=== PATIENT | female | born 1935 | race Caucasian/White ===

== ENCOUNTER 2018-05-08 12:05 | Inpatient (IN) ==
[2018-05-08] MEDS: BUDESONIDE NS SCH (21:16)
[2018-05-08] MEDS: Ammonium Lactate 30 APPL/225 GM BOTTLE TP SCH (21:16)
[2018-05-09] MEDS: MOM Conc 10 ML UD.LIQ PO SCH (08:02)
[2018-05-09] MEDS: Aspirin Enteric Coated 81 MG Tablet PO SCH (08:05)
[2018-05-09] MEDS: Loratadine 10 MG TABLET PO SCH (08:05)
[2018-05-09] MEDS: Cholecalciferol (D-3) 1,000 UNIT TABLET PO SCH (08:05)
[2018-05-09] MEDS: Ascorbic Acid 500 MG TABLET PO SCH (08:05)
[2018-05-09] MEDS: Lactobacillus 1 EACH CAP.SPRINK PO SCH (08:05)
[2018-05-09] MEDS: Ammonium Lactate 30 APPL/225 GM BOTTLE TP SCH ×2 (08:06→21:21)
[2018-05-09] MEDS: BUDESONIDE NS SCH ×2 (08:07→21:21)
[2018-05-09] MEDS ORDERED: (Potassium [Potassium] 99 MG) PO SCH (09:00)
[2018-05-09] MEDS ORDERED: FEXOFENADINE HCL 60 MG PO SCH (09:00)
[2018-05-09] MEDS ORDERED: PSYLLIUM HUSK PO SCH (09:00)
[2018-05-09] MEDS ORDERED: CALCIUM CARB PO SCH (09:00)
[2018-05-09] MEDS ORDERED: GLUCOSAMINE HCL 1000 MG PO SCH (09:00)
[2018-05-09] MEDS ORDERED: CRANBERRY PO SCH (09:00)
[2018-05-09] MEDS ORDERED: ASCORBIC ACID PO SCH (09:00)
--- NOTE | 2018-05-09 11:32 | Internal Med History&Physical ---
Date of Encounter: 05/09/18 Time of Encounter: 11:00 Assessment and Plan (1) Small bowel fistula Current visit: No Status: Acute Continue present management. Recheck labs in a.m. (2) Anemia Current visit: Yes Status: Acute Recheck labs in a.m. Qualifiers: Anemia type: unspecified type Qualified Code(s): D64.9 - Anemia, unspec ified (3) Constipation Current visit: Yes Status: Acute Continue scheduled MiraLAX and MOM. Add Dulcolax suppository as needed. Qualifiers: Constipation type: unspecified constipation type Qualified Code(s): K59.00 - Constipation, unspecified (4) Weakness Current visit: Yes Status: Acute PT and OT evaluations have been ordered Internal Medicine - H&P: HPI Chief complaint: Small bowel fistula Admitted From: Hospital to Hospital Transfer Plans for Post Hospital Care: Home History of present illness: Ms. Casas is a 82 year old female who was transferred to [facility] swing bed May 08 after [facility] admission May 02 for elective abdominal exploratory laparoscopy. The procedure was converted to laparotomy with lysis of adhesions and 16 inches of small bowel resection for fistula involving a mesh placed 2004 for ventral hernia repair. Her postop course was unremarkable and she was discharged to [facility] swing bed for rehabilitation therapy. Her GI history is pertinent for previous pancreatic cyst and occasional GERD symptoms. She denies disorders of her liver or gallbladder otherwise. Past Med Surg Social Fam HX - Past Medical History Medical history: arthritis, cancer, COPD, GERD, osteoporosis Additional medical history: DDD Psychiatric history: no psych history - Past Surgical History Surgical History: herniorrhaphy Additional surgical history: cyst removed from pancreas, shoulder repair,. PE tube in right ear. skin CA removed. tonsillectomy - Social History Smoking Status: Never smoker Smokeless Tobacco Status: No Alcohol use: rarely Drug use: none Internal Medicine - H&P: Meds Ammonium Lactate [Lac-Hydrin Five] 1 applic TP BID 05/02/18 [History] Ascorbic Acid [Vitamin C] 200 mg PO DAILY 05/02/18 [History] Aspirin [Lo-Dose Aspirin EC] 81 mg PO DAILY 05/02/18 [History] Cholecalciferol (D-3) [Vitamin D] 3,000 unit PO DAILY 05/02/18 [History] Cranberry Conc/Ascorbic Acid [Cranberry Plus Vitamin C Sftgl] 2 tab PO DAILY 05/02/18 [History] Fexofenadine HCl 60 mg PO DAILY 05/02/18 [History] Glucosamine HCl 1,000 mg PO DAILY 05/02/18 [History] Lactobacillus Combination No.8 [Adult Probiotic] 1 cap PO DAILY 05/02/18 [History] Montelukast [Singulair] 10 mg PO DAILY 05/02/18 [History] [place]-3/Dha/Epa/Fish Oil [Fish Oil 1,000 mg Softgel] 2 tab PO DAILY 05/02/18 [History] Polyethylene Glycol 3350 [MiraLAX] 17 gm PO HS 05/02/18 [History] Potassium 99 mg PO DAILY 05/02/18 [History] Psyllium Husk/Calcium Carb [Metamucil Plus Calcium Capsule] 6 tab PO DAILY 05/02/18 [History] Budesonide 1 spray NS BID 05/05/18 [History] Cetirizine HCl [Zyrtec] 10 mg PO DAILY 05/05/18 [History] Ibuprofen [Motrin] 800 mg PO Q8HR PRN tablet 05/08/18 [Rx] OxyCODONE/APAP 5/325 [Percocet 5/325 MG] 1 each PO Q6HR PRN 7 Days #28 tablet 05/08/18 [Rx] Allergy/AdvReac Type Severity Reaction Status Date / Time Amoxicillin [From Augmentin] Allergy See Verified 04/25/18 11:46 Comments clavulanic acid Allergy See Verified 04/25/18 11:46 [From Augmentin] Comments codeine Allergy Nausea Verified 04/25/18 11:46 gabapentin Allergy See Verified 04/25/18 11:46 Comments meloxicam Allergy See Verified 04/25/18 11:46 Comments meperidine Allergy See Verified 04/25/18 11:46 Comments naproxen Allergy See Verified 04/25/18 11:46 Comments pregabalin [From Lyrica] Allergy See Verified 04/25/18 11:46 Comments trazodone Allergy See Verified 04/25/18 11:46 Comments grass pollen AdvReac Watery Eye Verified 04/25/18 11:30 mupirocin AdvReac Diarrhea Verified 04/25/18 11:30 ragweed pollen AdvReac [place]y Eye Verified 04/25/18 11:30 tree and shrub pollen AdvReac Watery Eye Verified 04/25/18 11:30 weed pollen AdvReac Watery Eye Verified 04/25/18 11:30 All Systems PM: A 10-system review of systems was performed and is negative for pertinent findings except as documented above in the HPI. Review of systems: Gen.: She states her weight has been stable the past few months Cardiovascular: She denies hypertension [place] heart failure angina DVT or pulmonary embolus Respiratory: She is a lifelong nonsmoker. She reports she has been diagnosed with COPD. She does not use home oxygen. GI: As per history of present illness : She denies hematuria dysuria or kidney stones Neurologic: She denies large distribution strokes or seizures. Endocrine: She denies diabetes thyroid disease or hyperlipidemia Hematology/oncology: She has had skin cancer in the past but denies internal malignancies. She developed postop anemia following her recent abdominal surgery. Psychiatric: She denies anxiety depression or other mental health issues. [place] skeletal: She has DJD and osteoporosis. She had remote right shoulder injury and right forearm fracture. - Constitutional Vitals: Temp Pulse Resp BP Pulse Ox 98.0 F 78 18 118/68 97 05/09/18 07:28 05/09/18 07:28 05/09/18 07:28 05/09/18 07:28 05/09/18 08:32 Exam: Gen.: She is a well-developed well-nourished female resting comfortably in bed who appears in no acute distress HEENT: Head is atraumatic and normocephalic. Eyes: EOMI. There is no scleral icterus. Mouth: Mucosa is moist. Neck: Supple and nontender. There is no thyromegaly or adenopathy noted. Heart: Regular without murmurs gallops or ectopics Lungs: No wheezes or crackles are heard. Abdomen: She is wearing an abdominal binder. She has a surgical dressing in the lower midline abdominal wall which I did not remove. There is some serous drainage on the dressing and overlying clothing/bedding Extremities: There is no cyanosis edema or clubbing noted. Dorsalis pedis and posttibial pulses are trace palpable bilaterally. Her feet are warm to touch. Neurologic: Mental status: She is talkative and a good historian. Cranial nerves: Smile is symmetric. Forehead reveals bilaterally. Tongue protrudes midline. EOMI. Motor: There is no pronator drift. Cerebellar: Finger to nose is intact bilaterally. Skin: Warm and dry
[2018-05-09] MEDS: Bisacodyl 10 MG RECTAL SUPPOSITORY RC PRN (17:06)
[2018-05-09] MEDS: Ibuprofen 800 MG TABLET PO PRN (18:54)
[2018-05-10 05:10] LABS: Basophils % 0.6 %; Hematocrit 34.1 % (35.3-44.9); Hemoglobin 11.1 g/dL (11.5-15.4); Immature Granulocytes % 3.1 % (0-4); Lymphocytes # 0.8 K/mcL (0.6-4.6); Lymphocytes % 11.8 %; Mean Corpuscular HGB Conc 32.6 g/dL (31.6-35.5); Mean Corpuscular Hemoglobin 31.1 pg (28.0-33.3); Mean Corpuscular Volume 95.5 fL (83.0-100.0); Mean Platelet Volume 9.3 fL (9.4-12.4); Monocytes # 0.6 K/mcL (0.0-1.3); Monocytes % 8.8 %; Neutrophils # 5.1 K/mcL (1.6-8.9); Platelet Count 335 K/mcL (140-400); Red Blood Count 3.57 M/mcL (3.82-4.97); Red Cell Distribution Width 12.9 % (11.5-14.5); Segmented Neutrophils % 75.7 %
[2018-05-10] MEDS: Psyllium 1 PACKET POWD.PACK PO SCH (08:27)
[2018-05-10] MEDS: Cholecalciferol (D-3) 1,000 UNIT TABLET PO SCH (08:27)
[2018-05-10] MEDS: Aspirin Enteric Coated 81 MG Tablet PO SCH (08:28)
[2018-05-10] MEDS: Ascorbic Acid 500 MG TABLET PO SCH (08:28)
[2018-05-10] MEDS: Ibuprofen 800 MG TABLET PO PRN ×2 (08:28→22:29)
[2018-05-10] MEDS: Lactobacillus 1 EACH CAP.SPRINK PO SCH (08:29)
[2018-05-10] MEDS: Fluticasone Propionate Nasal 50 MCG/SPRAY BOTTLE NS SCH (08:29)
[2018-05-10] MEDS: Ammonium Lactate 30 APPL/225 GM BOTTLE TP SCH ×2 (08:30→22:24)
[2018-05-10] MEDS: Loratadine 10 MG TABLET PO SCH (08:35)
[2018-05-10 09:22] LABS: % Iron Saturation 13 % (15-50); Iron 25 mcg/dL (50-170); Transferrin 135 mg/dL (203-362)
[2018-05-10 09:40] LABS: Ferritin 133 ng/mL (10-120)
[2018-05-10 09:45] LABS: Folate 11.4 ng/mL (3.0-16.0)
[2018-05-10 09:53] LABS: Vitamin B12 > 1500 pg/mL (250-1100)
--- NOTE | 2018-05-10 18:11 | Internal Med Progress Note ---
Date of Encounter: 05/10/18 Time of Encounter: 18:00 - Assessment and plan (1) Small bowel fistula Current Visit: No Status: Acute Assessment and plan: May 10. Hemoglobin slightly improved at 11.1. Continue present managem ent. (2) Anemia Current Visit: Yes Status: Acute Assessment and plan: May 10. Anemia testing showed iron 25, transferrin saturation 13%, transferrin 135, ferritin 133, B12 > 1500, and folate 11.4. I told her I felt she might benefit from oral ferrous sulfate but she did not want to take this for fear of developing constipation. Qualifiers: Anemia type: unspecified type Qualified Code(s): D64.9 - Anemia, unspecified (3) Constipation Current Visit: Yes Status: Acute Assessment and plan: May 10. Continue scheduled MiraLAX with MOM and use Dulcolax as needed. Qualifiers: Constipation type: unspecified constipation type Qualified Code(s): K59.00 - Constipation, unspecified (4) Weakness Current Visit: Yes Status: Acute Assessment and plan: May 10. PT and OT evaluations have been ordered. - Subjective Interval history: May 10. She has no new complaints. - Constitutional Vitals: Temp Pulse Resp BP Pulse Ox 98.7 F 67 18 113/69 98 05/10/18 06:08 05/10/18 06:08 05/10/18 06:08 05/10/18 06:08 05/10/18 06:08 Exam: She has ambulated from the sink to her bed. Her affect is cheerful. I reviewed her medications and lab results. Internal Medicine: Result - Labs CBC & Chem 7: 05/10/18 04:51 Labs: Short CBC 05/10/18 Range/Units 04:51 WBC 6.8 (4.3-11.1) K/mcL Hgb 11.1 L (11.5-15.4) g/dL Hct 34.1 L (35.3-44.9) % Plt Count 335 (140-400) K/mcL Neutrophils # 5.1 (1.6-8.9) K/mcL Consult Discharge Plan - Plan Referrals: NONE,PCP [Primary Care Provider] - 1 week
[2018-05-10] MEDS: Bisacodyl 10 MG RECTAL SUPPOSITORY RC PRN (22:41)
[2018-05-11] MEDS: MOM Conc 10 ML UD.LIQ PO SCH (08:46)
[2018-05-11] MEDS: Aspirin Enteric Coated 81 MG Tablet PO SCH (08:47)
[2018-05-11] MEDS: Loratadine 10 MG TABLET PO SCH (08:47)
[2018-05-11] MEDS: Cholecalciferol (D-3) 1,000 UNIT TABLET PO SCH (08:47)
[2018-05-11] MEDS: Ascorbic Acid 500 MG TABLET PO SCH (08:48)
[2018-05-11] MEDS: Psyllium 1 PACKET POWD.PACK PO SCH (08:48)
[2018-05-11] MEDS: Lactobacillus 1 EACH CAP.SPRINK PO SCH (08:48)
[2018-05-11] MEDS: Ibuprofen 800 MG TABLET PO PRN (08:48)
[2018-05-11] MEDS: Fluticasone Propionate Nasal 50 MCG/SPRAY BOTTLE NS SCH (08:48)
[2018-05-11] MEDS: Ammonium Lactate 30 APPL/225 GM BOTTLE TP SCH ×2 (08:50→22:37)
[2018-05-12 04:45] LABS: Basophils % 0.4 %; Hematocrit 31.9 % (35.3-44.9); Hemoglobin 10.4 g/dL (11.5-15.4); Immature Granulocytes % 0.7 % (0-4); Lymphocytes # 1.1 K/mcL (0.6-4.6); Lymphocytes % 13.4 %; Mean Corpuscular HGB Conc 32.6 g/dL (31.6-35.5); Mean Corpuscular Hemoglobin 31.1 pg (28.0-33.3); Mean Corpuscular Volume 95.5 fL (83.0-100.0); Mean Platelet Volume 9.1 fL (9.4-12.4); Monocytes # 0.8 K/mcL (0.0-1.3); Monocytes % 8.9 %; Neutrophils # 6.4 K/mcL (1.6-8.9); Platelet Count 393 K/mcL (140-400); Red Blood Count 3.34 M/mcL (3.82-4.97); Red Cell Distribution Width 13.2 % (11.5-14.5); Segmented Neutrophils % 76.6 %
[2018-05-12 05:05] LABS: BUN/Creatinine Ratio 24 (6-26); Blood Urea Nitrogen 9 mg/dL (8-23); Calcium 8.8 mg/dL (8.6-10.3); Carbon Dioxide 25 mEq/L (23-29); Chloride 104 mEq/L (98-107); Glucose 118 mg/dL (70-105); Osmolality,Calculated 278 (280-300); Sodium 134 mEq/L (136-145); eGFR For Non-African Americans > 60 (> 60)
[2018-05-12] MEDS: Ascorbic Acid 500 MG TABLET PO SCH (09:25)
[2018-05-12] MEDS: *HR* OxyCODONE/APAP 5/325 TABLET PO PRN (09:25)
[2018-05-12] MEDS: Loratadine 10 MG TABLET PO SCH (09:25)
[2018-05-12] MEDS: Aspirin Enteric Coated 81 MG Tablet PO SCH (09:25)
[2018-05-12] MEDS: Lactobacillus 1 EACH CAP.SPRINK PO SCH (09:25)
[2018-05-12] MEDS: Cholecalciferol (D-3) 1,000 UNIT TABLET PO SCH (09:26)
[2018-05-12] MEDS: Fluticasone Propionate Nasal 50 MCG/SPRAY BOTTLE NS SCH (09:26)
[2018-05-12] MEDS: Psyllium 1 PACKET POWD.PACK PO SCH (09:26)
[2018-05-12] MEDS: Ammonium Lactate 30 APPL/225 GM BOTTLE TP SCH ×2 (09:27→20:48)
[2018-05-12] MEDS ORDERED: Isovue-370 500 ML INFUS..BTL IV ONE (15:32)
--- NOTE | 2018-05-12 15:38 | Internal Med Progress Note ---
Date of Encounter: 05/12/18 Time of Encounter: 15:25 - Assessment and plan (1) Small bowel fistula Current Visit: No Status: Acute Assessment and plan: May 10. Hemoglobin slightly improved at 11.1. Continue present managem ent. May 12. Will order abdominal/pelvic CT scan with contrast to further evaluate (2) Anemia Current Visit: Yes Status: Acute Assessment and plan: May 10. Anemia testing showed iron 25, transferrin saturation 13%, transferrin 135, ferritin 133, B12 > 1500, and folate 11.4. I told her I felt she might benefit from oral ferrous sulfate but she did not want to take this for fear of developing constipation. Qualifiers: Anemia type: unspecified type Qualified Code(s): D64.9 - Anemia, unspecified (3) Constipation Current Visit: Yes Status: Acute Assessment and plan: May 10. Continue scheduled MiraLAX with MOM and use Dulcolax as needed. Qualifiers: Constipation type: unspecified constipation type Qualified Code(s): K59.00 - Constipation, unspecified (4) Weakness Current Visit: Yes Status: Acute Assessment and plan: May 10. PT and OT evaluations have been ordered. - Subjective Interval history: May 10. She has no new complaints. May 12. She states she does not feel well. She denies significant abdomin al pain but states there has been no lessening of abdominal wound drainage. - Constitutional Vitals: Temp Pulse Resp BP Pulse Ox 97.9 F 69 19 108/61 97 05/12/18 07:11 05/12/18 07:11 05/12/18 07:11 05/12/18 07:11 05/12/18 07:11 Exam: She is sitting in a recliner chair at bedside. Packing was removed from the abdominal wound at both the proximal and distal end. There was significant amount of foul-smelling slightly purulent liquid expressed primarily from the distal site. No visible blood was seen. Extremities show trace to 1+ edema through WILLI hose. I reviewed her medications and lab results. Internal Medicine: Result - Labs CBC & Chem 7: 05/12/18 04:20 05/12/18 04:20 Labs: Short CBC 05/12/18 Range/Units 04:20 WBC 8.4 (4.3-11.1) K/mcL Hgb 10.4 L (11.5-15.4) g/dL Hct 31.9 L (35.3-44.9) % Plt Count 393 (140-400) K/mcL Neutrophils # 6.4 (1.6-8.9) K/mcL BMP 05/12/18 04:20 Sodium 134 L Potassium 4.0 Chloride 104 Carbon Dioxide 25 BUN 9 Creatinine 0.38 L Glucose 118 H Calcium 8.8 Consult Discharge Plan - Plan Referrals: NONE,PCP [Primary Care Provider] - 1 week
[2018-05-12] MEDS ORDERED: Ondansetron ODT 4 MG TAB.RAPDIS SL PRN (16:34)
[2018-05-12] MEDS ORDERED: ISOVUE-370 100 ML INFUS..BTL IVP ONE (17:46)
[2018-05-13 06:09] LABS: Basophils % 0.4 %; Hematocrit 31.5 % (35.3-44.9); Hemoglobin 10.3 g/dL (11.5-15.4); Immature Granulocytes % 1.3 % (0-4); Mean Corpuscular HGB Conc 32.7 g/dL (31.6-35.5); Mean Corpuscular Volume 94.9 fL (83.0-100.0); Mean Platelet Volume 9.2 fL (9.4-12.4); Monocytes % 13.4 %; Neutrophils # 5.3 K/mcL (1.6-8.9); Platelet Count 387 K/mcL (140-400); Red Blood Count 3.32 M/mcL (3.82-4.97); Segmented Neutrophils % 71.9 %
--- NOTE | 2018-05-13 09:29 | Internal Med Progress Note ---
Date of Encounter: 05/13/18 Time of Encounter: 09:10 - Assessment and plan (1) Small bowel fistula Current Visit: No Status: Acute Assessment and plan: May 10. Hemoglobin slightly improved at 11.1. Continue present managem ent. May 12. Will order abdominal/pelvic CT scan with contrast to further evaluate May 13. Will do C&S of abdominal drainage and start empiric antibiotics. Contact will be made with surgeon's office tomorrow for possible follow-up visit earlier than presently scheduled for 05/20/2018. (2) Anemia Current Visit: Yes Status: Acute Assessment and plan: May 10. Anemia testing showed iron 25, transferrin saturation 13%, transferrin 135, ferritin 133, B12 > 1500, and folate 11.4. I told her I felt she might benefit from oral ferrous sulfate but she did not want to take this for fear of developing constipation. Qualifiers: Anemia type: unspecified type Qualified Code(s): D64.9 - Anemia, unspecified (3) Constipation Current Visit: Yes Status: Acute Assessment and plan: May 10. Continue scheduled MiraLAX with MOM and use Dulcolax as needed. Qualifiers: Constipation type: unspecified constipation type Qualified Code(s): K59.00 - Constipation, unspecified (4) Weakness Current Visit: Yes Status: Acute Assessment and plan: May 10. PT and OT evaluations have been ordered. - Subjective Interval history: May 10. She has no new complaints. May 12. She states she does not feel well. She denies significant abdominal pain but states there has been no lessening of abdominal wound drainage. May 13. She states she does not feel improved. She is certain she has an infection in her abdomen. - Constitutional Vitals: Temp Pulse Resp BP Pulse Ox 98.8 F 93 18 103/57 98 05/12/18 18:37 05/12/18 18:37 05/12/18 18:37 05/12/18 18:37 05/12/18 18:37 Exam: She has lying in bed and appears in mild discomfort at rest. I reviewed her medications and lab results. I reviewed her abdominal CT report showing extraperitoneal fluid collection in the anterior pelvis with multifocal subcutaneous areas of gas and fluid. Internal Medicine: Result - Labs CBC & Chem 7: 05/13/18 05:25 05/12/18 04:20 Labs: Short CBC 05/13/18 Range/Units 05:25 WBC 7.4 (4.3-11.1) K/mcL Hgb 10.3 L (11.5-15.4) g/dL Hct 31.5 L (35.3-44.9) % Plt Count 387 (140-400) K/mcL Neutrophils # 5.3 (1.6-8.9) K/mcL - Impressions Impressions Abdomen/Pelvis CT 05/12/18 15:32 IMPRESSION: 1. The bowel gas pattern is most in keeping with mild adynamic ileus 2. Trace pneumoperitoneum is presumably related to recent surgical intervention but is nonspecific. 3. No contrast extravasation or intraperitoneal free fluid collection is evident within the abdomen or pelvis. 4. Extraperitoneal fluid collection is noted anterior in the pelvis and are multifocal subcutaneous areas of gas and fluid which are presumably postsurgical. Any of these areas could have involvement with infection. 5. Nonspecific right renal lesion probably reflects a cyst and should be followed with CT in 12 months. 6. Calcific atherosclerotic disease aorta. 7. Small volume bilateral pleural effusion with bibasilar relaxation atelectasis. D/ / Sanjeev Schmid / Sanjeev Schmid Interpreting Provider: Sanjeev Schmid Consult Discharge Plan - Plan Referrals: NONE,PCP [Primary Care Provider] - 1 week
[2018-05-13] MEDS: Loratadine 10 MG TABLET PO SCH (10:09)
[2018-05-13] MEDS: Aspirin Enteric Coated 81 MG Tablet PO SCH (10:09)
[2018-05-13] MEDS: Ascorbic Acid 500 MG TABLET PO SCH (10:09)
[2018-05-13] MEDS: Cholecalciferol (D-3) 1,000 UNIT TABLET PO SCH (10:09)
[2018-05-13] MEDS: Lactobacillus 1 EACH CAP.SPRINK PO SCH (10:09)
[2018-05-13] MEDS: Psyllium 1 PACKET POWD.PACK PO SCH (10:10)
[2018-05-13] MEDS: MOM Conc 10 ML UD.LIQ PO SCH (10:10)
[2018-05-13] MEDS: Fluticasone Propionate Nasal 50 MCG/SPRAY BOTTLE NS SCH (10:11)
[2018-05-13] MEDS: Ammonium Lactate 30 APPL/225 GM BOTTLE TP SCH ×2 (10:11→21:14)
[2018-05-13] MEDS: MetroNIDAZOLE 500 MG/100 ML 500 MG/100 ML BAG IVPB SCH ×2 (14:44→16:22)
[2018-05-14] MEDS: MetroNIDAZOLE 500 MG/100 ML 500 MG/100 ML BAG IVPB SCH ×4 (01:16→23:03)
[2018-05-14] MEDS: Lactobacillus 1 EACH CAP.SPRINK PO SCH (09:40)
[2018-05-14] MEDS: Ammonium Lactate 30 APPL/225 GM BOTTLE TP SCH ×2 (09:40→21:17)
[2018-05-14] MEDS: Ascorbic Acid 500 MG TABLET PO SCH (09:41)
[2018-05-14] MEDS: Cholecalciferol (D-3) 1,000 UNIT TABLET PO SCH (09:41)
[2018-05-14] MEDS: Psyllium 1 PACKET POWD.PACK PO SCH (09:41)
[2018-05-14] MEDS: Loratadine 10 MG TABLET PO SCH (09:43)
[2018-05-14] MEDS: Aspirin Enteric Coated 81 MG Tablet PO SCH (09:43)
--- NOTE | 2018-05-14 12:38 | Internal Med Progress Note ---
Date of Encounter: 05/14/18 Time of Encounter: : - Assessment and plan (1) Small bowel fistula Current Visit: No Status: Acute Assessment and plan: May 10. Hemoglobin slightly improved at 11.1. Continue present managem ent. May 12. Will order abdominal/pelvic CT scan with contrast to further evaluate May 13. Will do C&S of abdominal drainage and start empiric antibiotics. Contact will be made with surgeon's office tomorrow for possible follow-up visit earlier than presently scheduled for 05/20/2018. May 14. Awaiting appointment with surgery to evaluate abdominal wound. Continue IV antibiotics. Culture report pending. (2) Anemia Current Visit: Yes Status: Acute Assessment and plan: May 10. Anemia testing showed iron 25, transferrin saturation 13%, transferrin 135, ferritin 133, B12 > 1500, and folate 11.4. I told her I felt she might benefit from oral ferrous sulfate but she did not want to take this for fear of developing constipation. May 14. Recheck labs in a.m. Qualifiers: Anemia type: unspecified type Qualified Code(s): D64.9 - Anemia, unspecified (3) Constipation Current Visit: Yes Status: Acute Assessment and plan: May 10. Continue scheduled MiraLAX with MOM and use Dulcolax as needed. Qualifiers: Constipation type: unspecified constipation type Qualified Code(s): K59.00 - Constipation, unspecified (4) Weakness Current Visit: Yes Status: Acute Assessment and plan: May 10. PT and OT evaluations have been ordered. - Subjective Interval history: May 10. She has no new complaints. May 12. She states she does not feel well. She denies significant abdominal pain but states there has been no lessening of abdominal wound drainage. May 13. She states she does not feel improved. She is certain she has an infection in her abdomen. May 14. She states she does not feel improved. She thinks the quantity of drainage may be lessening from her abdominal incision. - Constitutional Vitals: Temp Pulse Resp BP Pulse Ox 98.5 F 78 16 115/64 96 05/14/18 06:31 05/14/18 06:31 05/14/18 06:31 05/14/18 06:31 05/14/18 06:31 Exam: She is sitting in a chair at bedside and appears in minimal physical distress. Her affect is sad and she appears emotionally distressed. I reviewed her medications and lab results. I note a low-grade fever of 99.3 last evening. Internal Medicine: Result - Labs CBC & Chem 7: 05/13/18 05:25 05/12/18 04:20 - Impressions Impressions Abdomen/Pelvis CT 05/12/18 15:32 IMPRESSION: 1. The bowel gas pattern is most in keeping with mild adynamic ileus 2. Trace pneumoperitoneum is presumably related to recent surgical intervention but is nonspecific. 3. No contrast extravasation or intraperitoneal free fluid collection is evident within the abdomen or pelvis. 4. Extraperitoneal fluid collection is noted anterior in the pelvis and are multifocal subcutaneous areas of gas and fluid which are presumably postsurgical. Any of these areas could have involvement with infection. 5. Nonspecific right renal lesion probably reflects a cyst and should be followed with CT in 12 months. 6. Calcific atherosclerotic disease aorta. 7. Small volume bilateral pleural effusion with bibasilar relaxation atelectasis. D/ / Sanjeev Schmid / Sanjeev Schmid Interpreting Provider: Sanjeev Schmid Consult Discharge Plan - Plan Referrals: NONE,PCP [Primary Care Provider] - 1 week
[2018-05-14] MEDS: Fluticasone Propionate Nasal 50 MCG/SPRAY BOTTLE NS SCH (14:10)
[2018-05-14] MEDS: Acetaminophen 325 MG TABLET PO PRN (18:11)
[2018-05-14] MEDS: *HR* OxyCODONE/APAP 5/325 TABLET PO PRN (23:03)
[2018-05-14] MEDS: Ondansetron 4 MG/2 ML VIAL IVP PRN (23:03)
[2018-05-15] MEDS: Cholecalciferol (D-3) 1,000 UNIT TABLET PO SCH (07:32)
[2018-05-15] MEDS: Aspirin Enteric Coated 81 MG Tablet PO SCH (07:33)
[2018-05-15] MEDS: Ascorbic Acid 500 MG TABLET PO SCH (07:33)
[2018-05-15] MEDS: Lactobacillus 1 EACH CAP.SPRINK PO SCH (07:33)
[2018-05-15] MEDS: Psyllium 1 PACKET POWD.PACK PO SCH (07:33)
[2018-05-15] MEDS: Loratadine 10 MG TABLET PO SCH (07:33)
[2018-05-15] MEDS: Ammonium Lactate 30 APPL/225 GM BOTTLE TP SCH ×2 (07:38→21:11)
[2018-05-15] MEDS: Fluticasone Propionate Nasal 50 MCG/SPRAY BOTTLE NS SCH (07:38)
[2018-05-15] MEDS: MOM Conc 10 ML UD.LIQ PO SCH (07:40)
[2018-05-15] MEDS: MetroNIDAZOLE 500 MG/100 ML 500 MG/100 ML BAG IVPB SCH (11:10)
--- NOTE | 2018-05-15 11:12 | Internal Med Progress Note ---
Date of Encounter: 05/15/18 Time of Encounter: 11:00 - Assessment and plan (1) Small bowel fistula Current Visit: No Status: Acute Assessment and plan: May 10. Hemoglobin slightly improved at 11.1. Continue present managem ent. May 12. Will order abdominal/pelvic CT scan with contrast to further evaluate May 13. Will do C&S of abdominal drainage and start empiric antibiotics. Contact will be made with surgeon's office tomorrow for possible follow-up visit earlier than presently scheduled for 05/20/2018. May 14. Awaiting appointment with surgery to evaluate abdominal wound. Continue IV antibiotics. Culture report pending. May 15. Preliminary wound culture shows 2 gram-negative rods. Review of 05/02/2018 wound culture was reviewed. Will change antibiotics to IV Levaquin and Rocephin and continue lactobacillus. The surgery SENIOR PRINCIPAL SOFTWARE ENGINEER change the packing orders and recommended oral Diflucan. (2) Anemia Current Visit: Yes Status: Acute Assessment and plan: May 10. Anemia testing showed iron 25, transferrin saturation 13%, transferrin 135, ferritin 133, B12 > 1500, and folate 11.4. I told her I felt she might benefit from oral ferrous sulfate but she did not want to take this for fear of developing constipation. May 14. Recheck labs in a.m. Qualifiers: Anemia type: unspecified type Qualified Code(s): D64.9 - Anemia, unspe cified (3) Constipation Current Visit: Yes Status: Acute Assessment and plan: May 10. Continue scheduled MiraLAX with MOM and use Dulcolax as needed. Qualifiers: Constipation type: unspecified constipation type Qualified Code(s): K59.00 - Constipation, unspecified (4) Weakness Current Visit: Yes Status: Acute Assessment and plan: May 10. PT and OT evaluations have been ordered. - Subjective Interval history: May 10. She has no new complaints. May 12. She states she does not feel well. She denies significant abdominal pain but states there has been no lessening of abdominal wound drainage. May 13. She states she does not feel improved. She is certain she has an infection in her abdomen. May 14. She states she does not feel improved. She thinks the quantity of drainage may be lessening from her abdominal incision. May 15. She feels better. She saw surgery staff this morning to evaluate abdominal wound. I spoke with the evaluating SENIOR PRINCIPAL SOFTWARE ENGINEER at the surgeon's office following the visit. - Constitutional Vitals: Temp Pulse Resp BP Pulse Ox 97.6 F 82 16 124/63 98 05/15/18 07:07 05/15/18 07:07 05/15/18 07:07 05/15/18 07:07 05/15/18 07:07 Exam: She is sitting on the side of bed and appears in no acute distress. Her affect is much more bright and cheerful today. I reviewed her medications and lab results. I reviewed her preliminary culture report from wound culture 05/13/2018. Internal Medicine: Result - Labs CBC & Chem 7: 05/13/18 05:25 05/12/18 04:20 Consult Discharge Plan - Plan Referrals: NONE,PCP [Primary Care Provider] - 1 week
[2018-05-15] MEDS: Acetaminophen 325 MG TABLET PO PRN (17:23)
[2018-05-15] MEDS: Fluconazole 100 MG TABLET PO SCH (18:28)
[2018-05-15] MEDS: Levofloxacin 500 MG/100 ML 500 MG/100 ML BAG IVPB SCH (18:29)
[2018-05-15] MEDS: cefTRIAXone 1,000 MG in Water for inj. (sterile) 20 ML 10 ML IVP SCH (18:29)
[2018-05-16 06:58] LABS: Basophils # 0.1 K/mcL (0.0-0.2); Basophils % 1.1 %; Hematocrit 33.2 % (35.3-44.9); Hemoglobin 10.7 g/dL (11.5-15.4); Immature Granulocytes % 1.8 % (0-4); Lymphocytes % 16.3 %; Mean Corpuscular HGB Conc 32.2 g/dL (31.6-35.5); Mean Corpuscular Volume 96.2 fL (83.0-100.0); Mean Platelet Volume 9.2 fL (9.4-12.4); Monocytes # 0.9 K/mcL (0.0-1.3); Monocytes % 13.7 %; Neutrophils # 4.2 K/mcL (1.6-8.9); Platelet Count 491 K/mcL (140-400); Red Blood Count 3.45 M/mcL (3.82-4.97); Red Cell Distribution Width 13.1 % (11.5-14.5); Segmented Neutrophils % 67.1 %
[2018-05-16 07:16] LABS: BUN/Creatinine Ratio 20 (6-26); Blood Urea Nitrogen 9 mg/dL (8-23); Calcium 9.2 mg/dL (8.6-10.3); Carbon Dioxide 27 mEq/L (23-29); Chloride 105 mEq/L (98-107); Glucose 107 mg/dL (70-105); Osmolality,Calculated 283 (280-300); Potassium 3.6 mEq/L (3.5-5.1); Sodium 137 mEq/L (136-145); eGFR For Non-African Americans > 60 (> 60)
[2018-05-16] MEDS: Aspirin Enteric Coated 81 MG Tablet PO SCH (08:15)
[2018-05-16] MEDS: Psyllium 1 PACKET POWD.PACK PO SCH (08:16)
[2018-05-16] MEDS: Ascorbic Acid 500 MG TABLET PO SCH (08:16)
[2018-05-16] MEDS: Loratadine 10 MG TABLET PO SCH (08:17)
[2018-05-16] MEDS: Lactobacillus 1 EACH CAP.SPRINK PO SCH (08:17)
[2018-05-16] MEDS: Cholecalciferol (D-3) 1,000 UNIT TABLET PO SCH (08:17)
[2018-05-16] MEDS: Fluconazole 100 MG TABLET PO SCH (08:17)
[2018-05-16] MEDS: Fluticasone Propionate Nasal 50 MCG/SPRAY BOTTLE NS SCH (08:18)
[2018-05-16] MEDS: Ammonium Lactate 30 APPL/225 GM BOTTLE TP SCH ×2 (08:18→21:26)
[2018-05-16] MEDS: Acetaminophen 325 MG TABLET PO PRN (11:44)
[2018-05-16] MEDS: Levofloxacin 500 MG/100 ML 500 MG/100 ML BAG IVPB SCH (12:06)
[2018-05-16] MEDS: cefTRIAXone 1,000 MG in Water for inj. (sterile) 20 ML 10 ML IVP SCH (12:07)
--- NOTE | 2018-05-16 15:13 | Internal Med Progress Note ---
Date of Encounter: 05/16/18 Time of Encounter: 15:05 - Assessment and plan (1) Small bowel fistula Current Visit: No Status: Acute Assessment and plan: May 10. Hemoglobin slightly improved at 11.1. Continue present managem ent. May 12. Will order abdominal/pelvic CT scan with contrast to further evaluate May 13. Will do C&S of abdominal drainage and start empiric antibiotics. Contact will be made with surgeon's office tomorrow for possible follow-up visit earlier than presently scheduled for 05/20/2018. May 14. Awaiting appointment with surgery to evaluate abdominal wound. Continue IV antibiotics. Culture report pending. May 15. Preliminary wound culture shows 2 gram-negative rods. Review of 05/02/2018 wound culture was reviewed. Will change antibiotics to IV Levaquin and Rocephin and continue lactobacillus. The surgery STAPLE CUTTER change the packing orders and recommended oral Diflucan. May 16. Preliminary abdominal culture report now shows 3 gram-negative rods without final ID available. Continue IV Levaquin and Rocephin with lactobacillus and Diflucan. Anticipate discharge home 05/19/2018. (2) Anemia Current Visit: Yes Status: Acute Assessment and plan: May 10. Anemia testing showed iron 25, transferrin saturation 13%, transferrin 135, ferritin 133, B12 > 1500, and folate 11.4. I told her I felt she might benefit from oral ferrous sulfate but she did not want to take this for fear of developing constipation. May 14. Recheck labs in a.m. May 15. Hemoglobin improved to 10.7. Continue present regimen. Qualifiers: Anemia type: unspecified type Qualified Code(s): D64.9 - Anemia, unspecified (3) Constipation Current Visit: Yes Status: Acute Assessment and plan: May 10. Continue scheduled MiraLAX with MOM and use Dulcolax as needed. Qualifiers: Constipation type: unspecified constipation type Qualified Code(s): K59.00 - Constipation, unspecified (4) Weakness Current Visit: Yes Status: Acute Assessment and plan: May 10. PT and OT evaluations have been ordered. - Subjective Interval history: May 10. She has no new complaints. May 12. She states she does not feel well. She denies significant abdominal pain but states there has been no lessening of abdominal wound drainag e. May 13. She states she does not feel improved. She is certain she has an infection in her abdomen. May 14. She states she does not feel improved. She thinks the quantity of drainage may be lessening from her abdominal incision. May 15. She feels better. She saw surgery staff this morning to evaluate abdominal wound. I spoke with the evaluating STAPLE CUTTER at the surgeon's office foll owing the visit. May 16. She has no new complaints. She states she will only allow the catheter be removed if a pessary is inserted. - Constitutional Vitals: Temp Pulse Resp BP Pulse Ox 98.2 F 69 16 123/52 100 05/16/18 06:44 05/16/18 06:44 05/16/18 06:44 05/16/18 06:44 05/16/18 06:44 Exam: She is sitting comfortably in a chair at bedside and appears in no acute distress. She is wearing WILLI hose bilaterally. No pitting edema is present through the WILLI hose. Her affect is overall cheerful. I reviewed her medications and lab results. Internal Medicine: Result - Labs CBC & Chem 7: 05/16/18 06:15 05/16/18 06:15 Labs: Short CBC 05/16/18 Range/Units 06:15 WBC 6.2 (4.3-11.1) K/mcL Hgb 10.7 L (11.5-15.4) g/dL Hct 33.2 L (35.3-44.9) % Plt Count 491 H (140-400) K/mcL Neutrophils # 4.2 (1.6-8.9) K/mcL BMP 05/16/18 06:15 Sodium 137 Potassium 3.6 Chloride 105 Carbon Dioxide 27 BUN 9 Creatinine 0.44 L Glucose 107 H Calcium 9.2 Consult Discharge Plan - Plan Referrals: NONE,PCP [Primary Care Provider] - 1 week
[2018-05-16] MEDS: Ondansetron 4 MG/2 ML VIAL IVP PRN (16:12)
[2018-05-16] MEDS ORDERED: *HR* Promethazine 25 MG/ML VIAL IVP PRN (18:50)
[2018-05-17] MEDS: MOM Conc 10 ML UD.LIQ PO SCH (06:22)
[2018-05-17] MEDS: Ascorbic Acid 500 MG TABLET PO SCH (08:52)
[2018-05-17] MEDS: Fluconazole 100 MG TABLET PO SCH (08:52)
[2018-05-17] MEDS: Lactobacillus 1 EACH CAP.SPRINK PO SCH ×2 (08:52→20:59)
[2018-05-17] MEDS: Cholecalciferol (D-3) 1,000 UNIT TABLET PO SCH (08:52)
[2018-05-17] MEDS: Ammonium Lactate 30 APPL/225 GM BOTTLE TP SCH (08:53)
[2018-05-17] MEDS: Fluticasone Propionate Nasal 50 MCG/SPRAY BOTTLE NS SCH (08:53)
[2018-05-17] MEDS: Aspirin Enteric Coated 81 MG Tablet PO SCH (08:53)
[2018-05-17] MEDS: Loratadine 10 MG TABLET PO SCH (08:53)
[2018-05-17] MEDS: Psyllium 1 PACKET POWD.PACK PO SCH (08:54)
--- NOTE | 2018-05-17 18:16 | Internal Med Progress Note ---
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 Hemoglobin slightly improved at 11.1. Continue present managem ent. May 12. Will order abdominal/pelvic CT scan with contrast to further evaluate May 13. Will do C&S of abdominal drainage and start empiric antibiotics. Contact will be made with surgeon's office tomorrow for possible follow-up visit earlier than presently scheduled for 05/20/2018. May 2. Awaiting appointment with surgery to evaluate abdominal wound. Continue IV antibiotics. Culture report pending. May 15. Preliminary wound culture shows 2 gram-negative rods. Review of 05/02/2018 wound culture was reviewed. Will change antibiotics to IV Levaquin and Rocephin and continue lactobacillus. The surgery ENVIRONMENTAL ENGINEERING AIDE change the packing orders and recommended oral Diflucan. May 16. Preliminary abdominal culture report now shows 3 gram-negative rods without final ID available. Continue IV Levaquin and Rocephin with lactobacillus and Diflucan. Anticipate discharge home 05/19/2018. May 17. Final culture report noted. Change Levaquin to oral and discontinue Rocephin. (2) Anemia Current Visit: Yes Status: Acute Assessment and plan: May 10. Anemia testing showed iron 25, transferrin saturation 13%, transferrin 135, ferritin 133, B12 > 1500, and folate 11.4. I told her I felt she might benefit from oral ferrous sulfate but she did not want to take this for fear of developing constipation. May 14. Recheck labs in a.m. May 15. Hemoglobin improved to 10.7. Continue present regimen. Qualifiers: Anemia type: unspecified type Qualified Code(s): D64.9 - Anemia, unspecified (3) Constipation Current Visit: Yes Status: Acute Assessment and plan: May 10. Continue scheduled MiraLAX with MOM and use Dulcolax as needed. Qualifiers: Constipation type: unspecified constipation type Qualified Code(s): K59.00 - Constipation, unspecified (4) Weakness Current Visit: Yes Status: Acute Assessment and plan: May 10. PT and OT evaluations have been ordered. - Subjective Interval history: May 10. She has no new complaints. May 12. She states she does not feel well. She denies significant abdominal pain but states there has been no lessening of abdominal wound drainage. May 13. She states she does not feel improved. She is certain she has an infection in her abdomen. May 14. She states she does not feel improved. She thinks the quantity of drainage may be lessening from her abdominal incision. May 15. She feels better. She saw surgery staff this morning to evaluate abdominal wound. I spoke with the evaluating ENVIRONMENTAL ENGINEERING AIDE at the surgeon's office following the visit. May 16. She has no new complaints. She states she will only allow the catheter be removed if a pessary is inserted. May 17. She has no new complaints. She states she wishes to be discharged home tomorrow instead of May 19. She reports the quantity of drainage has decreased from her abdominal incision. - Constitutional Vitals: Temp Pulse Resp BP Pulse Ox 98.0 F 72 16 97/55 99 05/17/18 06:34 05/17/18 06:34 05/17/18 06:34 05/17/18 06:34 05/17/18 06:34 Exam: She is resting comfortably in a recliner chair and appears in no acute distress. Her affect is bright and cheerful. I reviewed her medications and lab results. Internal Medicine: Result - Labs CBC & Chem 7: 05/16/18 06:15 05/16/18 06:15 Consult Discharge Plan - Plan Referrals: NONE,PCP [Primary Care Provider] - 1 week
[2018-05-17] MEDS ORDERED: levoFLOXacin 500 MG TABLET PO SCH (18:30)
[2018-05-17] MEDS ORDERED: Ondansetron ODT 4 MG TAB.RAPDIS SL PRN (21:12)
[2018-05-18] MEDS ORDERED: Mag Hydrox/Al Hydrox/Simeth 30 ML UDC PO SCH
[2018-05-18] MEDS ORDERED: Mag Hydrox/Al Hydrox/Simeth 30 ML UDC PO PRN (00:51)
[2018-05-18 07:03] VITALS: BP 131/70
[2018-05-18] MEDS: Aspirin Enteric Coated 81 MG Tablet PO SCH (09:05)
[2018-05-18] MEDS: Lactobacillus 1 EACH CAP.SPRINK PO SCH ×2 (09:06→09:27)
[2018-05-18] MEDS: Loratadine 10 MG TABLET PO SCH (09:06)
[2018-05-18] MEDS: Fluticasone Propionate Nasal 50 MCG/SPRAY BOTTLE NS SCH (09:07)
[2018-05-18] MEDS: Psyllium 1 PACKET POWD.PACK PO SCH (09:08)
[2018-05-18] MEDS: Cholecalciferol (D-3) 1,000 UNIT TABLET PO SCH (09:09)
[2018-05-18] MEDS: Ascorbic Acid 500 MG TABLET PO SCH (09:10)
[2018-05-18] MEDS: Fluconazole 100 MG TABLET PO SCH (09:12)
--- NOTE | 2018-05-18 11:21 | Discharge Summary ---
Date of Encounter: 05/18/18 Time of Encounter: 11:05 - Discharge Diagnosis (1) Small bowel fistula Priority: Primary Status: Acute (2) Anemia Priority: Secondary Status: Acute Qualifiers: Anemia type: unspecified type Qualified Code(s): D64.9 - Anemia, unspecified (3) Constipation Priority: Secondary Status: Acute Qualifiers: Constipation type: unspecified constipation type Qualified Code(s): K59.00 - Constipation, unspecified (4) Weakness Priority: Secondary Status: Acute Hospital course: Ms. Casas is a 82 year old female who was transferred to [facility] swing bed May 08 after [facility] admission May 02 for elective abdominal exploratory laparoscopy. The procedure was converted to laparotomy with lysis of adhesions and 16 inches of small bowel resection for fistula involving a mesh placed 2004 for ventral hernia repair. Her postop course was unremarkable and she was discharged to [facility] swing bed for rehabilitation therapy. Initial orders were written by the discharging physicians at [facility]. I saw her on May 09 and performed the swing bed history and physical. She had daily ab dominal incision dressing changes. She was seen by surgery staff at [facility] during her swing bed stay to specifically address significant quantity of drainage from the distal abdominal incision. Repeat wound culture was done and showed growth of Escherichia coli, Enterobacter, and Proteus. All organisms were sensitive to Levaquin. She stated she felt antibiotics were making her nauseated but I re commended she continue Levaquin for at least 5 days at discharge. Lactobacillus and Diflucan will also be given. Anemia testing showed iron 25, transferrin saturation 13%, transferrin 135, ferritin 133, B12> 1500, and folate 11.4. I recommended she take ferrous sulfate with ascorbic acid but she declined these during hospitalization stated she feared constipation from the iron supplement. Her PCP can further address. On May 18 she stated she wished to be discharged home. Home health services will be arranged. She will follow with her PCP Dr. Mcwilliams within 1 week. - Time Spent with Patient Total time spent providing and/or coordinating discharge services: - Discharge Medications Prescriptions: Lactobacillus [Culturelle] 1 each PO BID #10 cap.sprink levoFLOXacin [Levaquin] 500 mg PO QPM #5 tablet Home Medications: Ammonium Lactate [Lac-Hydrin Five] 1 applic TP BID 05/02/18 [History] Ascorbic Acid [Vitamin C] 200 mg PO DAILY 05/02/18 [History] Aspirin [Lo-Dose Aspirin EC] 81 mg PO DAILY 05/02/18 [History] Cholecalciferol (D-3) [Vitamin D] 3,000 unit PO DAILY 05/02/18 [History] Cranberry Conc/Ascorbic Acid [Cranberry Plus Vitamin C Sftgl] 2 tab PO DAILY 05/02/18 [History] Fexofenadine HCl 60 mg PO DAILY 05/02/18 [History] Glucosamine HCl 1,000 mg PO DAILY 05/02/18 [History] Lactobacillus Combination No.8 [Adult Probiotic] 1 cap PO DAILY 05/02/18 [History] Montelukast [Singulair] 10 mg PO DAILY 05/02/18 [History] [place]-3/Dha/Epa/Fish Oil [Fish Oil 1,000 mg Softgel] 2 tab PO DAILY 05/02/18 [History] Polyethylene Glycol 3350 [MiraLAX] 17 gm PO HS 05/02/18 [History] Potassium 99 mg PO DAILY 05/02/18 [History] Psyllium Husk/Calcium Carb [Metamucil Plus Calcium Capsule] 6 tab PO DAILY 05/02/18 [History] Budesonide 1 spray NS BID 05/05/18 [History] Cetirizine HCl [Zyrtec] 10 mg PO DAILY 05/05/18 [History] Ibuprofen [Motrin] 800 mg PO Q8HR PRN tablet 05/08/18 [Rx] Lactobacillus [Culturelle] 1 each PO BID #10 cap.sprink 05/18/18 [Rx] levoFLOXacin [Levaquin] 500 mg PO QPM #5 tablet 05/18/18 [Rx] Allergies/Adverse Reactions: Allergy/AdvReac Type Severity Reaction Status Date / Time Amoxicillin [From Augmentin] Allergy See Verified 04/25/18 11:46 Comments clavulanic acid Allergy See Verified 04/25/18 11:46 [From Augmentin] Comments codeine Allergy Nausea Verified 04/25/18 11:46 gabapentin Allergy See Verified 04/25/18 11:46 Comments meloxicam Allergy See Verified 04/25/18 11:46 Comments meperidine Allergy See Verified 04/25/18 11:46 Comments naproxen Allergy See Verified 04/25/18 11:46 Comments pregabalin [From Lyrica] Allergy See Verified 04/25/18 11:46 Comments trazodone Allergy See Verified 04/25/18 11:46 Comments grass pollen AdvReac Watery Eye Verified 04/25/18 11:30 mupirocin AdvReac Diarrhea Verified 04/25/18 11:30 ragweed pollen AdvReac Watery Eye Verified 04/25/18 11:30 tree and shrub pollen AdvReac Watery Eye Verified 04/25/18 11:30 weed pollen AdvReac Watery Eye Verified 04/25/18 11:30 Date of admission: 05/08/18 15:08 Primary care physician: Dinh Mcwilliams DO Consults: 05/08/18 18:29 Consult to Occupational Therapy [CONS] Routine Comment: Evaluate, develop and implement POC Reason for Consult: s/p abdominal surgery Does patient have active BEDREST order?: No Is patient medically & hemodynamically stable?: Yes Patient assessed for mobility or mobilized this visit?: No Consult to Physical Therapy [CONS] Routine Comment: Evaluate, develop and implement POC Reason for Consult: s/p abdominal surgery Does patient have active BEDREST order?: No Is patient medically & hemodynamically stable?: Yes Patient assessed for mobility or mobilized this visit?: No - Constitutional Vitals: Temp Pulse Resp BP Pulse Ox 97.7 F 72 20 131/70 96 05/18/18 06:50 05/18/18 06:50 05/18/18 06:50 05/18/18 06:50 05/18/18 06:50 - Patient Status Disposition: Home Health Service - Discharge Instructions Follow Up With: Dinh Mcwilliams DO [Partnered Physician] - 1 week (call Saturday for follow up) - Diet and Activity Activity: as per physical therapy Diet: advance to your usual diet
--- NOTE | 2018-05-18 11:29 | Physician Discharge Referral ---
Home Health/Hosp Referral Info Transfer to: Home Health Attending Provider: Vishnu Provider in Charge Post Discharge: PCP (Dinh Mcwilliams D.O.) - Diagnosis (1) Small bowel fistula Priority: Primary Status: Acute (2) Anemia Priority: Secondary Status: Acute (3) Constipation Priority: Secondary Status: Acute (4) Weakness Priority: Secondary Status: Acute - Respiratory Orders Smoking Cessation: Smoking cessation has been advised. For more information, call the [place] Tobacco Quit Line at 7-482-DXNH-NOW. - Dressing/Wound Care Type of Dressing/Treatments w/Frequency: Pack abdominal wound daily until adequately healed. - Diet/Nutrition Diet/Nutrition Orders: Regular - Activity Activity Orders: Ambulate - Services Needed Following services are medically necessary services: Nursing, Home Health Aide, Physical Therapy, Occupational Therapy - Transfer Medications Prescriptions: Fluconazole [Diflucan] 100 mg PO DAILY #5 tablet Lactobacillus [Culturelle] 1 each PO BID #10 cap.sprink levoFLOXacin [Levaquin] 500 mg PO QPM #5 tablet Home Medications: Ammonium Lactate [Lac-Hydrin Five] 1 applic TP BID 05/02/18 [History] Ascorbic Acid [Vitamin C] 200 mg PO DAILY 05/02/18 [History] Aspirin [Lo-Dose Aspirin EC] 81 mg PO DAILY 05/02/18 [History] Cholecalciferol (D-3) [Vitamin D] 3,000 unit PO DAILY 05/02/18 [History] Cranberry Conc/Ascorbic Acid [Cranberry Plus Vitamin C Sftgl] 2 tab PO DAILY 05/02/18 [History] Fexofenadine HCl 60 mg PO DAILY 05/02/18 [History] Glucosamine HCl 1,000 mg PO DAILY 05/02/18 [History] Lactobacillus Combination No.8 [Adult Probiotic] 1 cap PO DAILY 05/02/18 [History] Montelukast [Singulair] 10 mg PO DAILY 05/02/18 [History] [place]-3/Dha/Epa/Fish Oil [Fish Oil 1,000 mg Softgel] 2 tab PO DAILY 05/02/18 [History] Polyethylene Glycol 3350 [MiraLAX] 17 gm PO HS 05/02/18 [History] Potassium 99 mg PO DAILY 05/02/18 [History] Psyllium Husk/Calcium Carb [Metamucil Plus Calcium Capsule] 6 tab PO DAILY 05/02/18 [History] Budesonide 1 spray NS BID 12/24/18 [History] Cetirizine HCl [Zyrtec] 10 mg PO DAILY 05/05/18 [History] Ibuprofen [Motrin] 800 mg PO Q8HR PRN tablet 05/08/18 [Rx] Fluconazole [Diflucan] 100 mg PO DAILY #5 tablet 05/18/18 [Rx] Lactobacillus [Culturelle] 1 each PO BID #10 cap.sprink 05/18/18 [Rx] levoFLOXacin [Levaquin] 500 mg PO QPM #5 tablet 05/18/18 [Rx] Allergies/Adverse Reactions: Allergy/AdvReac Type Severity Reaction Status Date / Time Amoxicillin [From Augmentin] Allergy See Verified 04/25/18 11:46 Comments clavulanic acid Allergy See Verified 04/25/18 11:46 [From Augmentin] Comments codeine Allergy Nausea Verified 04/25/18 11:46 gabapentin Allergy See Verified 04/25/18 11:46 Comments meloxicam Allergy See Verified 04/25/18 11:46 Comments meperidine Allergy See Verified 04/25/18 11:46 Comments naproxen Allergy See Verified 04/25/18 11:46 Comments pregabalin [From Lyrica] Allergy See Verified 04/25/18 11:46 Comments trazodone Allergy See Verified 04/25/18 11:46 Comments grass pollen AdvReac Watery Eye Verified 04/25/18 11:30 mupirocin AdvReac Diarrhea Verified 04/25/18 11:30 ragweed pollen AdvReac Watery Eye Verified 04/25/18 11:30 tree and shrub pollen AdvReac Watery Eye Verified 04/25/18 11:30 weed pollen AdvReac Watery Eye Verified 04/25/18 11:30 Certification: Further, I certify that my clinical findings support that this patient is homebound (i.e. absences from home require considerable and taxing effort and are for medical reasons or rastafarian services or infrequently or short duration when for other reasons) because: Homebound Reason: Post-surgery restriction and or conditions limit ability to leave home (Daily abdominal wound packing required) Attestation: My signature below is to certify that this patient is under my care and that I, or nurse practitioner, or a physician's anesthesia assistant working with me, has a [id number] encounter with this patient.
== END 2018-05-18 12:50 | disposition home health service (06) | DRG 950 ==
LOC: INPPIK 15:08
PROVIDERS: ADMIT Internal Medicine; ATTEND Internal Medicine